=== PATIENT | female | born 1955 | race Caucasian/White ===

== ENCOUNTER → 2021-10-22 | Outpatient (CLI) | payer MEDICARE, OTHER ==
[~2021-10-22] MED LIST: BASAGLAR K100 UNIT/1 SQ; CORGARD 40MG TA40 MG PO; CYMBALTA 30 MG30 MG PO; GABAPENTIN300 MG PO; GLIPIZIDE10 MG PO; LIPITOR TAB 2020 MG PO; LISINOPRIL2.5 MG PO; LO-DOSE ASPIRIN81 MG PO; NITROFURANTOIN100 MG PO; NORVASC2.5 MG PO; OMEPRAZOLE40 MG PO; OXYBUTYNIN CHLOR5 MG PO; TRULICITY3 MG/0.5 M SQ
[2021-10-22 11:32] LABS: HEMOGLOBIN 13.9 gm/dl (12.3-15.3); RED BLOOD COUNT 5.06 M/UL (4.00-5.10); WHITE BLOOD COUNT 7.4 K/UL (4.5-11.0)
== END ==
LOC: OPSV2 10:26 → EDSTATUS 10:30 → OPSV2 10:30
PROVIDERS: Orthopaedic Surgery
DX: Z01.818 Encounter for other preprocedural examination (principal); M16.11 Unilateral primary osteoarthritis, right hip
CPT/HCPCS: 36415; 80048; 83036; 85027; 93005

== ENCOUNTER → 2021-11-04 | Outpatient (CLI) | payer MEDICARE, OTHER ==
[~2021-11-04] MED LIST changes: +ASPIRIN EC81 MG PO; +CYCLOBENZAPRINE10 MG PO; +ENDOCET 7.5-321 EACH PO; +LOW DOSE ASPIRI81 MG PO; +ZOFRAN 4 MG TAB4 MG PO
== END ==
LOC: LAB 11:37
PROVIDERS: Orthopaedic Surgery
DX: Z01.812 Encounter for preprocedural laboratory examination (principal)
CPT/HCPCS: 36415; 80048; 86850; 86870; 86900; 86901; 86920; 86922

== ENCOUNTER 2021-11-05 07:18 | Day surgery (SDC) | payer MEDICARE, OTHER ==
[~2021-11-05] VITALS: Ht 167.6 cm; Wt 100.2 kg
[~2021-11-05 07:18] MED LIST changes: -ASPIRIN EC81 MG PO; -CYCLOBENZAPRINE10 MG PO; -ENDOCET 7.5-321 EACH PO; -LOW DOSE ASPIRI81 MG PO; -ZOFRAN 4 MG TAB4 MG PO
[2021-11-05] MEDS ORDERED: ENDOCET 7.5-321 EACH PO (12:12)
[2021-11-05] MEDS ORDERED: CYCLOBENZAPRINE10 MG PO (12:12)
[2021-11-05] MEDS ORDERED: ZOFRAN 4 MG TAB4 MG PO (12:12)
[2021-11-05] MEDS ORDERED: ASPIRIN EC81 MG PO (12:12)
[2021-11-06 03:59] LABS: HEMOGLOBIN 11.1 gm/dl (12.3-15.3); RED BLOOD COUNT 4.05 M/UL (4.00-5.10); WHITE BLOOD COUNT 13.6 K/UL (4.5-11.0)
[2021-11-06] MEDS ORDERED: LOW DOSE ASPIRI81 MG PO (11:55)
== END 2021-11-06 13:42 | disposition home or self-care (01) ==
LOC: OR 07:18 → EDSTATUS 07:30 → M/S 15:13 → OR 11-06 13:42
PROVIDERS: Orthopaedic Surgery
DX: M16.11 Unilateral primary osteoarthritis, right hip (principal); M17.0 Bilateral primary osteoarthritis of knee; G47.33 Obstructive sleep apnea (adult) (pediatric); D86.9 Sarcoidosis, unspecified; I12.0 Hypertensive chronic kidney disease with stage 5 chronic kidney disease or end stage renal disease; E11.22 Type 2 diabetes mellitus with diabetic chronic kidney disease; F32.A Depression, unspecified; N18.6 End stage renal disease; E78.5 Hyperlipidemia, unspecified; K21.9 Gastro-esophageal reflux disease without esophagitis; Z90.49 Acquired absence of other specified parts of digestive tract; Z98.51 Tubal ligation status; Z88.1 Allergy status to other antibiotic agents; Z88.2 Allergy status to sulfonamides; Z79.84 Long term (current) use of oral hypoglycemic drugs; Z79.4 Long term (current) use of insulin; Z79.82 Long term (current) use of aspirin; Z20.822 Contact with and (suspected) exposure to COVID-19; Z87.891 Personal history of nicotine dependence
CPT/HCPCS: 36415; 73501; 73502; 76000; 80048; 82962; 85027; 97110-GP-CQ; 97116-GP-CQ; 97161; 97166; 97535; C1776; J0171; J0690; J1100; J1170; J2370; J2405; J2704; J2795; J7050; J7120; P9045

== ENCOUNTER → 2022-02-05 | Outpatient (CLI) | payer MEDICARE, OTHER ==
[~2022-02-05] MED LIST changes: +ASPIRIN EC81 MG PO; +CYCLOBENZAPRINE10 MG PO; +ENDOCET 7.5-321 EACH PO; +LOW DOSE ASPIRI81 MG PO; +ZOFRAN 4 MG TAB4 MG PO
== END ==
LOC: HEART 5 09:47
DX: D86.9 Sarcoidosis, unspecified (principal)
CPT/HCPCS: 94010

== ENCOUNTER → 2022-02-11 | Outpatient (CLI) | payer MEDICARE, OTHER | LOC: KOH-I 15:55 | DX: D86.9 Sarcoidosis, unspecified (principal); R91.8 Other nonspecific abnormal finding of lung field | CPT/HCPCS: 71250 ==

== ENCOUNTER → 2022-03-19 | Outpatient (CLI) | payer MEDICARE, OTHER ==
[~2022-03-19] MED LIST changes: +DOXYCYCLINE HY100 MG PO; +METROGEL60 GM TOP
[2022-03-19 12:03] LABS: HEMOGLOBIN 14.5 gm/dl (12.3-15.3); RED BLOOD COUNT 5.46 M/UL (4.00-5.10); WHITE BLOOD COUNT 8.6 K/UL (4.5-11.0)
== END ==
LOC: EDSTATUS 10:00 → OPSV2 10:00
PROVIDERS: Orthopaedic Surgery
DX: Z01.818 Encounter for other preprocedural examination (principal); M17.12 Unilateral primary osteoarthritis, left knee
CPT/HCPCS: 80048; 83036; 85027; 93005

== ENCOUNTER → 2022-03-31 | Outpatient (CLI) | payer MEDICARE, OTHER ==
[~2022-03-31] MED LIST changes: +ELIQUIS2.5 MG PO
== END ==
LOC: LAB 11:17
PROVIDERS: Orthopaedic Surgery
DX: Z01.812 Encounter for preprocedural laboratory examination (principal)
CPT/HCPCS: 36415; 80048; 86850; 86870; 86902; 86920; 86922

== ENCOUNTER 2022-04-01 05:31 | Inpatient (IN) | payer MEDICARE, OTHER ==
[~2022-04-01] VITALS: Ht 167.6 cm; Wt 98.0 kg
[~2022-04-01 05:31] MED LIST changes: -ELIQUIS2.5 MG PO
[2022-04-01] MEDS ORDERED: ELIQUIS2.5 MG PO (08:18)
[2022-04-02 02:58] LABS: HEMOGLOBIN 11.4 gm/dl (12.3-15.3); RED BLOOD COUNT 4.26 M/UL (4.00-5.10); WHITE BLOOD COUNT 17.7 K/UL (4.5-11.0)
[2022-04-03 03:47] LABS: HEMOGLOBIN 9.5 gm/dl (12.3-15.3)
[2022-04-03 03:51] LABS: RED BLOOD COUNT 3.68 M/UL (4.00-5.10)
[2022-04-03] MEDS ORDERED: NITROFURANTOIN100 MG PO (15:50)
[2022-04-04 02:28] LABS: HEMOGLOBIN 9.7 gm/dl (12.3-15.3); RED BLOOD COUNT 3.64 M/UL (4.00-5.10); WHITE BLOOD COUNT 13.4 K/UL (4.5-11.0)
[2022-04-05 02:24] LABS: HEMOGLOBIN 9.2 gm/dl (12.3-15.3); RED BLOOD COUNT 3.46 M/UL (4.00-5.10); WHITE BLOOD COUNT 14.9 K/UL (4.5-11.0)
--- NOTE | 2022-04-05 10:53 | NUR ---
ROOM AIR RESTING OXYGEN 92% AMBULATING OXYGEN 96% ROOM AIR
[2022-04-06 06:20] LABS: RED BLOOD COUNT 3.42 M/UL (4.00-5.10)
[2022-04-06 06:54] LABS: BUN/CREATININE RATIO 22 (0-10)
--- NOTE | 2022-04-06 22:49 | NUR ---
PT REFUSED HYDROCODONE. WITNESSED TABLET WASTE WITH MICHELA ALLEN. QUIN DIDNT ASK FOR A WITNESS.
== END 2022-04-07 13:24 | disposition home or self-care (01) | DRG 470 ==
LOC: OR 05:31 → M/S 05:31 → EDSTATUS 07:30 → OR 12:23 → CCU 12:23 → M/S 17:54 → CCU 17:54 → M/S 04-03 14:35
PROVIDERS: Internal Medicine; Physician Assistant; ADMIT Orthopaedic Surgery
PROC: 5A09357 Assistance with Respiratory Ventilation, Less than 24 Consecutive Hours, Continuous Positive Airway Pressure (ICD-10-PCS; 2022-04-01)
PROC: 0SRD0J9 Replacement of Left Knee Joint with Synthetic Substitute, Cemented, Open Approach (ICD-10-PCS; principal; 2022-04-01 07:30)
DX: M17.12 Unilateral primary osteoarthritis, left knee (principal); R09.02 Hypoxemia; I95.9 Hypotension, unspecified; Z20.822 Contact with and (suspected) exposure to COVID-19; G47.33 Obstructive sleep apnea (adult) (pediatric); Z96.643 Presence of artificial hip joint, bilateral; K21.9 Gastro-esophageal reflux disease without esophagitis; F41.9 Anxiety disorder, unspecified; F32.A Depression, unspecified; E11.22 Type 2 diabetes mellitus with diabetic chronic kidney disease; E66.9 Obesity, unspecified; I12.9 Hypertensive chronic kidney disease with stage 1 through stage 4 chronic kidney disease, or unspecified chronic kidney disease; N18.30 Chronic kidney disease, stage 3 unspecified; E78.5 Hyperlipidemia, unspecified; M79.7 Fibromyalgia; Z85.828 Personal history of other malignant neoplasm of skin; Z90.49 Acquired absence of other specified parts of digestive tract; Z98.51 Tubal ligation status; Z88.1 Allergy status to other antibiotic agents; Z88.8 Allergy status to other drugs, medicaments and biological substances; Z79.01 Long term (current) use of anticoagulants; Z79.82 Long term (current) use of aspirin; Z82.49 Family history of ischemic heart disease and other diseases of the circulatory system; Z68.34 Body mass index [BMI] 34.0-34.9, adult
CPT/HCPCS: 0240U; 36415; 71045; 73560; 80048; 81001; 82962; 85025; 85027; 87040; 94660; 94760; 96374; 97110-GP-CQ; 97116-GP-CQ; 97161; 97165; 97530; 97530-GP-CQ; 97535; C1713; C1776; G0378; J0171; J0690; J1100; J1170; J1885; J2001; J2270; J2274; J2405; J2704; J2795; J3010; J3370